=== PATIENT | female | born 1955 ===

== ENCOUNTER → 2018-05-27 20:33 | Outpatient (REF) | payer OTHER, SELFPAY ==
[2018-06-02 15:22] LABS: Almond Allergy Class 0; Almond Allergy IgE < 0.10 kU/L (< 0.10); Cashew nut Allergy Class 0; Cashew nut Allergy IgE < 0.10 kU/L (< 0.10); Codfish Allergy Class 0; Codfish Allergy IgE < 0.10 kU/L (< 0.10); Cow Milk Allergy Class 0; Cow Milk Allergy IgE < 0.10 kU/L (< 0.10); Egg Whites IgE < 0.10 kU/L (< 0.10); Hazelnut Allergy Class 0; Hazelnut Allergy IgE < 0.10 kU/L (< 0.10); Peanut Allergy Class 0; Peanut Allergy IgE < 0.10 kU/L (< 0.10); Salmon Allergy Class 0; Salmon Allergy IgE < 0.10 kU/L (< 0.10); Scallop Allergy Class 0; Scallop Allergy IgE < 0.10 kU/L (< 0.10); Sesame seed Allergy Class 0; Sesame seed Allergy IgE < 0.10 kU/L (< 0.10); Shrimp Allergy Class 0; Shrimp Allergy IgE < 0.10 kU/L (< 0.10); Soybean Allergy Class 0; Soybean Allergy IgE < 0.10 kU/L (< 0.10); Tuna Allergy Class 0; Tuna Allergy IgE < 0.10 kU/L (< 0.10); Walnut Allergy Class 0; Walnut Allery IgE < 0.10 kU/L (< 0.10); Wheat Allergy Class 0; Wheat Allergy IgE < 0.10 kU/L (< 0.10)
== END ==
LOC: LAB 20:33
PROVIDERS: Visit Provider Naturopath
DX: Z91.011 Allergy to milk products (principal); Z91.012 Allergy to eggs; Z91.018 Allergy to other foods; L50.9 Urticaria, unspecified; R14.0 Abdominal distension (gaseous)
CPT/HCPCS: 36415; 86003